=== PATIENT | male | born 2000 | race Caucasian/White ===

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

== ENCOUNTER 2023-01-21 16:27 | Emergency (ER) | payer OTHER ==
[2023-01-21] MEDS ORDERED: Boostrix 0.5 ML (Tdap) VIAL (>/=7 yrs of age) ONE (16:47)
[2023-01-21] MEDS ORDERED: Lidocaine 1% PF 5 ML VIAL ONE (16:47)
== END 2023-01-21 20:11 | disposition home or self-care (01) ==
LOC: ERS 16:27
DX: S01.01XA Laceration without foreign body of scalp, initial encounter (principal); W20.8XXA Other cause of strike by thrown, projected or falling object, initial encounter
CPT/HCPCS: 12001; 70450; 72125; 90471; 90715